=== PATIENT | female | born 2000 | race African-American/Black ===

== ENCOUNTER → 2019-11-18 | Outpatient (CLI) | payer BC ==
[2019-11-18 17:10] LABS: ABSOLUTE RETIC # 31 10e9/L (24-90); BASOPHILS % (AUTO) 1 % (0-10); EOSINOPHILS % (AUTO) 1 % (0-10); HEMATOCRIT 36 % (35-52); HEMOGLOBIN 12.6 G/DL (11.5-16.0); LYMPHOCYTES # (AUTO) 1.7 X 10^3 (1.0-4.0); LYMPHOCYTES % (AUTO) 54 % (12-44); MEAN CORPUSCULAR HEMOGLOBIN 31 PG (25-34); MEAN CORPUSCULAR HGB CONC 35 G/DL (32-36); MEAN CORPUSCULAR VOLUME 88 FL (80-99); MEAN PLATELET VOLUME 9.2 FL (7.4-10.4); MONOCYTES # (AUTO) 0.4 X 10^3 (0.0-1.0); MONOCYTES % (AUTO) 14 % (0-12); NEUTROPHILS % (AUTO) 31 % (42-75); PLATELET COUNT 185 10^3/uL (130-400); RED CELL DISTRIBUTION WIDTH 12.1 % (10.0-14.5); RETICULOCYTE % 0.76 % (0.50-2.40); WHITE BLOOD COUNT 3.1 10^3/uL (4.3-11.0)
[2019-11-18 18:05] LABS: NEUTROPHILS % (MANUAL) 32 %
[2019-11-18 18:06] LABS: BAND NEUTROPHILS 0 %; BASOPHILS % (MANUAL) 2 %; EOSINOPHILS % (MANUAL) 1 %; LYMPHOCYTES % (MANUAL) 54 %; MONOCYTES % (MANUAL) 11 %; RBC MORPH NORMAL
== END ==
LOC: LAB 16:48
PROVIDERS: ATTEND Nurse Practitioner Family
DX: D72.818 Other decreased white blood cell count (principal)
CPT/HCPCS: 36415; 85007; 85027; 85045

== ENCOUNTER → 2020-05-13 | Outpatient (CLI) | payer BC ==
--- NOTE | 2020-05-13 13:55 | Diagnostic Imaging Report ---
PROCEDURE: Pelvic comp/transvaginal sonogram. TECHNIQUE: Complete transabdominal and transvaginal pelvic ultrasound was performed. In addition, limited pelvic Doppler was performed. INDICATION: Pelvic pain. FINDINGS: Uterus is anteverted measuring 8.0 x 4.2 x 4.3 cm. Endometrium is 8 mm in thickness. There is an area of heterogeneity in the posterior uterus which may represent a fibroid. This is approximately 2.5 x 1.9 x 2.8 cm in size. This does slightly distort the endometrium. No other myometrial masses are seen. Right ovary measures 2.6 x 1.5 x 1.7 cm. Right ovary demonstrates blood flow. No adnexal mass or free fluid is seen. Left ovary cannot be visualized due to overlying bowel gas. There is no free fluid. IMPRESSION: 1. Probable posterior uterine fibroid slightly distorting the endometrium. 2. Nonvisualized left ovary. The study is otherwise unremarkable. Dictated by: Dictated on workstation # [id number]
== END ==
LOC: RAD 13:00
PROVIDERS: ATTEND Obstetrics & Gynecology
DX: N85.8 Other specified noninflammatory disorders of uterus (principal); R10.2 Pelvic and perineal pain
CPT/HCPCS: 76830; 76856